=== PATIENT | male | born 1985 | race Caucasian/White ===

== ENCOUNTER 2018-11-05 11:50 | Emergency (ER) | payer BC ==
--- NOTE | 2018-11-05 13:07 | CR ---
[id number] RAD/RAD Ribs Left W PA Chest Exam: RAD Ribs Left W PA Chest Clinical Data: TRAUMA COMPARISON: NO PREVIOUS SIMILAR EXAM IS AVAILABLE FINDINGS: There is a fracture of left fifth rib, age indeterminate. There is no pleural fluid collection or pneumothorax. The cardiomediastinal contour is normal. IMPRESSION: LEFT FIFTH RIB FRACTURE, AGE INDETERMINATE. aTrun Mckeon MD 11/05/18 [id number] Thank you for allowing us to participate in the care of your patient.
--- NOTE | 2018-11-05 13:18 | EDM.PDOC ---
ED HPI GENERAL MEDICAL PROBLEM - General Chief Complaint: General Stated Complaint: CHEST PAIN Time Seen by Provider: 11/05/18 12:08 Source of Information: Reports: Patient History Limitations: Reports: No Limitations - History of Present Illness INITIAL COMMENTS - FREE TEXT/NARRATIVE: Pt presents withpain in left ribs. Injured left chest last week Still with pain Worse with movement and deep breathing Onset: Gradual Duration: Day(s): Location: Reports: Chest Quality: Reports: Stabbing, Throbbing Severity: Moderate Improves with: Reports: Immobilization Worsens with: Reports: Breathing, Movement Context: Reports: Trauma Associated Symptoms: Reports: No Other Symptoms Left Chest Pain Score (Numeric/FACES): 8 Past Medical History Respiratory History: Reports: Asthma Social & Family History - Tobacco Use Smoking Status *Q: Current Every Day Smoker Years of Tobacco use: 10 Packs/Tins Daily: 0.3 - Alcohol Use Days Per Week of Alcohol Use: 3 Number of Drinks Per Day: 7 Total Drinks Per Week: 21 - Recreational Drug Use Recreational Drug Use: No ED ROS GENERAL - Review of Systems Review Of Systems: See Below Respiratory: Reports: Shortness of Breath Cardiovascular: Reports: Chest Pain ED EXAM, GENERAL - Physical Exam Exam: See Below Exam Limited By: No Limitations General Appearance: Mild Distress Respiratory/Chest: Lungs Clear, Other (Left chest tender with palpation No ecchymosis No deformity) Course - Vital Signs Last Recorded V/S: Last Vital Signs Temp 36.9 C 11/05/18 11:55 Pulse 87 11/05/18 11:55 Resp 18 11/05/18 11:55 BP 119/69 11/05/18 11:55 Pulse Ox 97 11/05/18 11:55 - Radiology Interpretation Free Text/Narrative:: Per radiologist: Left 5th rib fracture Age indeterminant Departure - Departure Time of Disposition: 13:30 Disposition: Home, Self-Care 01 Clinical Impression: Rib fracture Qualifiers: Encounter type: initial encounter Rib fracture type: single rib Fracture type: closed Laterality: left Qualified Code(s): S22.32XA - Fracture of one rib, left side, initial encounter for closed fracture - Discharge Information *PRESCRIPTION DRUG MONITORING PROGRAM REVIEWED*: Not Applicable *COPY OF PRESCRIPTION DRUG MONITORING REPORT IN PATIENT EDITA: Not Applicable Instructions: Rib Fracture, Rib Fracture, [id number] Referrals: PCP,Not In Area [Primary Care Provider] - Additional Instructions: RX Tramadol 50 mg every 6 hours for pain #10 Follow up in clinic Activity as tolerated
== END 2018-11-05 13:30 | disposition home or self-care (01) ==
LOC: VM.ED 11:50
DX: S22.32XA Fracture of one rib, left side, initial encounter for closed fracture (principal); J45.909 Unspecified asthma, uncomplicated; F17.210 Nicotine dependence, cigarettes, uncomplicated; X58.XXXA Exposure to other specified factors, initial encounter
CPT/HCPCS: 71101-LT; 99283-25